=== PATIENT | male | born 1995 | race Caucasian/White ===

== ENCOUNTER 2017-03-21 15:49 | Emergency (ER) | payer MEDICAID ==
[~2017-03-21] VITALS: Ht 185.4 cm; Wt 77.1 kg
[2017-03-21 15:50] VITALS: BP_SYST 123
[2017-03-21] MEDS ORDERED: IBUPROFEN 800 MG TABLET PO ONE (16:30)
[2017-03-21] MEDS ORDERED: CEPHALEXIN 500 MG CAPSULE PO ONE (16:30)
[2017-03-21 16:40] VITALS: BP_SYST 128
== END 2017-03-21 16:40 | disposition home or self-care (01) ==
LOC: SED 15:49
DX: K08.89 Other specified disorders of teeth and supporting structures (principal); R03.0 Elevated blood-pressure reading, without diagnosis of hypertension; J45.909 Unspecified asthma, uncomplicated
CPT/HCPCS: 99283

== ENCOUNTER 2023-11-10 22:06 | Emergency (ER) | payer MEDICAID ==
[~2023-11-10] VITALS: Ht 188 cm; Wt 88.5 kg
[2023-11-10 22:14] VITALS: BP_SYST 120; PULSE 89; RESP 18; TEMP 97.9; O2SAT 96
== END 2023-11-10 23:50 | disposition left against medical advice (07) ==
LOC: SED 22:29
DX: M54.50 Low back pain, unspecified (principal); M25.512 Pain in left shoulder; M79.641 Pain in right hand; Z53.21 Procedure and treatment not carried out due to patient leaving prior to being seen by health care provider